=== PATIENT | male | born 1945 | race Caucasian/White ===

== ENCOUNTER 2017-07-15 11:49 | Emergency (ER) | payer MEDICARE, OTHER ==
[2017-07-15] MEDS ORDERED: Lidocaine 1% (PF) 30 ML VIAL ONE (12:09)
[2017-07-15] MEDS ORDERED: Bacitracin Zinc 1 Packet ONE (12:10)
[2017-07-15] MEDS ORDERED: Adacel (T-DAP) 0.5 ML VIAL ONE (12:47)
== END 2017-07-15 13:01 | disposition home or self-care (01) ==
LOC: ERS 11:49
DX: S61.011A Laceration without foreign body of right thumb without damage to nail, initial encounter (principal); W26.8XXA Contact with other sharp object(s), not elsewhere classified, initial encounter; Y99.0 Civilian activity done for income or pay
CPT/HCPCS: 12001; 90715; J2001

== ENCOUNTER 2018-02-02 15:19 | Emergency (ER) | payer MEDICARE, OTHER ==
--- NOTE | 2018-02-02 17:26 | RAD ---
TWO VIEWS CHEST: Comparison: None. History: Flu-like symptoms for five days with cough. FINDINGS: Two views of the chest show normal sized cardiomediastinal silhouette. There is no evidence of consol idation, mass, or pleural effusion. Degenerative changes are seen in the spine. IMPRESSION: No evidence of acute cardiopulmonary disease. POS: [facility]
== END 2018-02-02 17:24 | disposition home or self-care (01) ==
LOC: ERS 15:19
DX: J40 Bronchitis, not specified as acute or chronic (principal); Z79.899 Other long term (current) drug therapy
CPT/HCPCS: 71046

== ENCOUNTER 2018-09-03 07:28 | Outpatient (CLI) | payer MEDICARE, OTHER ==
--- NOTE | 2018-09-03 10:53 | MRI ---
MRI THORACIC SPINE NONCONTRAST: Date: 09/03/18 HISTORY: 72-year-old male with chronic thoracic spine pain becoming recently worse. FINDINGS: There is mildly exaggerated kyphosis, perhaps related to the minimal chronic loss of height of T6, T7 , T8, T9, T10, and T11 vertebrae, with minimal anterior wedging. There is no bone marrow edema at any level. There is a hemangioma of bone at the left side of T11. No other bone marrow signal abnormalit y. There is moderate left neural foraminal stenosis at T10-11. No high grade neural foraminal stenosi s at any other level. No high grade central bony spinal canal stenosis at any level. Prominent circum ferential epidural fat pad throughout the mid and lower thoracic spine levels result in mild and mode rate thecal sac stenosis. No extrinsic cord compression. No focal disc herniation that impinges on th e spinal cord. The thoracic spinal cord is normal in size and signal. No major pathology of the periv ertebral spaces. IMPRESSION: 1. Exaggerated kyphosis associated with minimal anterior wedge compression deformities of multiple l evels in the mid and lower thoracic spine, which are all chronic. 2. No acute compression fracture or cord impingement. 3. Left neural foraminal stenosis at T10-11. POS: [facility]
--- NOTE | 2018-09-03 10:53 | MRI ---
MRI LUMBAR SPINE NONCONTRAST: HISTORY: Low back pain. FINDINGS: The conus medullaris has a normal appearance. Vertebral body heights are maintained. Desiccation of all the intervertebral disks with discogenic endplate changes in the bone marrow. T12-L1, L1-L2: Osteophytosis. The central canal and neural foramina are patent. L2-L3: Minimal degenerative spondylolisthesis. Posterior disk bulge and circumferential degenerativ e changes with mild stenosis of the central canal and each neural foramina. L3-L4: Disk space narrowing. Posterior disk bulge and circumferential degenerative changes with mil d stenosis of the central canal and moderate stenosis of each neural foramen. L4-L5: Grade 1 degenerative spondylolisthesis. Disk space narrowing. Posterior disk bulge and circ umferential degenerative changes with severe stenosis of the central canal and each neural foramen. L5-S1: Mild posterior disk bulge with posterior annular fissure. The thecal sac is patent. The dis k bulge and degenerative changes result in moderate right and mild left foraminal stenosis. IMPRESSION: Degenerative changes throughout the lumbar spine. The central canal and foraminal stenosis is most s evere at the L4-L5 level. POS: [facility]
== END 2018-09-03 07:29 | disposition home or self-care (01) ==
LOC: BICMRI 07:28
PROVIDERS: ATTEND Family Medicine
DX: M54.5 Low back pain (principal); M48.061 Spinal stenosis, lumbar region without neurogenic claudication; M47.816 Spondylosis without myelopathy or radiculopathy, lumbar region; M47.817 Spondylosis without myelopathy or radiculopathy, lumbosacral region; M48.04 Spinal stenosis, thoracic region; M40.204 Unspecified kyphosis, thoracic region; M43.8X4 Other specified deforming dorsopathies, thoracic region
CPT/HCPCS: 72146; 72148

== ENCOUNTER 2018-12-27 04:22 | Emergency (ER) | payer MEDICARE, OTHER ==
[2018-12-27 04:49] LABS: #Basophils 0.1 thou/uL (0.0-0.2); #Eosinphils 0.2 thou/uL (0.0-0.7); #Lymphocytes 1.9 thou/uL (1.20-3.40); #Monocytes 0.6 thou/uL (0.11-0.59); #Neutrophils 1.5 thou/uL (1.40-6.50); %Basophils 1.5 % (0.0-1.0); %Eosinophils 5.8 % (0.0-10.0); %Lymphocytes 43.6 % (21.0-51.0); %Monocytes 13.8 % (0.0-10.0); %Neutrophils 35.3 % (42.0-75.0); Hemoglobin 14.2 g/dL (14.0-18.0); Mean Corpuscular HGB CONC 33.9 g/dL (32.0-36.0); Mean Corpuscular Hemoglobin 32.3 pg (27.0-31.0); Mean Corpuscular Volume 95.3 fL (78.0-98.0); Mean Platelet Volume 6.6 fL (7.4-10.4); Platelet Count 224 thou/uL (130-400); RBC Distribution Width 11.3 % (11.5-14.5); White Blood Cell (WBC) Count 4.3 thou/uL (4.8-10.8)
[2018-12-27] MEDS ORDERED: Ketorolac Tromethamine 30 MG/ML VIAL ONE (04:50)
[2018-12-27] MEDS ORDERED: Morphine 4 MG/ML VIAL ONE (04:50)
[2018-12-27 05:08] LABS: ALT (SGPT) 36 U/L (8-55); AST (SGOT) 44 U/L (5-34); Albumin 4.3 g/dL (3.4-4.8); Alkaline Phosphatase 122 U/L (40-150); Anion Gap 14 mmol/L (10-20); BUN (Urea Nitrogen) 22 mg/dL (8.4-25.7); Bilirubin, Total 0.3 mg/dL (0.2-1.2); Calc. Creatinine Clearance 0 mL/min (70-130); Calcium 9.7 mg/dL (7.8-10.44); Carbon Dioxide 25 mmol/L (23-31); Chloride 107 mmol/L (98-107); Estimated GFR-MDRD Greater than 90; Globulin 3.1 g/dL (2.4-3.5); Glucose 130 mg/dL (83-110); Potassium 3.9 mmol/L (3.5-5.1); Protein, Total 7.4 g/dL (5.8-8.1); Sodium 142 mmol/L (136-145)
[2018-12-27 06:08] LABS: Bilirubin Negative (Negative); Blood, Urine Large (Negative); Clarity CLEAR (Clear); Glucose, Urine (Dipstick) Negative (Negative); Leukocyte Negative (Negative); Nitrite Negative (Negative); Protein, Urine (Dipstick) Trace mg/dL (Neg-Trace); Specific Gravity, Urine 1.028 (1.002-1.036); Urobilinogen 0.2 mg/dL (0.2-1.0)
[2018-12-27 06:10] LABS: Bacteria/HPF None Seen HPF (None Seen); Hyaline Casts/LPF 0-3 HYALINE CAST LPF (0-3 Hyaline); RBC/HPF 0-3 HPF (0-3); Squamous Epithelial 0-3 HPF (0-3); WBC/HPF 0-3 HPF (0-3)
[2018-12-27 06:25] LABS: Crystals/HPF 1+ CA OXALATE HPF (Negative)
--- NOTE | 2018-12-27 07:13 | CT ---
CT OF ABDOMEN AND PELVIS NONCONTRAST RENAL CALCULUS PROTOCOL: Date: 12/27/18 COMPARISON: 06/17/17. INDICATION: History of urolithiasis, pain. FINDINGS: There is bilateral nephrolithiasis. There is mild right side hydroureteronephrosis which is resultant of a distal right ureteral calculus that measures approximately 2-3 mm. Mild prominence of the left lower pole collecting system may be related to parapelvic cyst formation. There is extensive colonic diverticulosis. Vascular disease is present. No significant abnormality of the lung bases. There are osseous degenerative changes. Evaluation is otherwise limited on the basis of noncontrast technique. IMPRESSION: 1. Mildly obstructing distal right ureteral calculus measuring 2-3 mm. 2. Bilateral nephrolithiasis. 3. Extensive colonic diverticulosis. POS: [facility]
== END 2018-12-27 06:45 | disposition home or self-care (01) ==
LOC: ERS 04:22
DX: N13.2 Hydronephrosis with renal and ureteral calculous obstruction (principal)
CPT/HCPCS: 74176; 80053; 81003; 81015; 85025; 87086; 96374; 96375; J1885; J2270

== ENCOUNTER 2019-07-21 13:33 | Emergency (ER) | payer MEDICARE, OTHER ==
[2019-07-21] MEDS ORDERED: Ketorolac Tromethamine 30 MG/ML VIAL ONE (13:45)
--- NOTE | 2019-07-21 14:15 | RAD ---
XR Elbow Lt 4 View STANDARD: 07/21/2019 1:45 PM CLINICAL INDICATION: Injury COMPARISON: None. FINDINGS: Fracture:No fracture. Arthropathy:Mild osteoarthritis. Incidental findings:None of significance. IMPRESSION: No acute osseous abnormality.
== END 2019-07-21 14:22 | disposition home or self-care (01) ==
LOC: SCSER 13:33
DX: S53.402A Unspecified sprain of left elbow, initial encounter (principal); F32.9 Major depressive disorder, single episode, unspecified; Z85.46 Personal history of malignant neoplasm of prostate; X50.9XXA Other and unspecified overexertion or strenuous movements or postures, initial encounter
CPT/HCPCS: 96372; J1885

== ENCOUNTER 2019-08-09 13:25 | Outpatient (CLI) | payer MEDICARE, OTHER ==
[2019-08-09 15:08] LABS: #Eosinphils 0.1 thou/uL (0.0-0.7); #Lymphocytes 1.4 thou/uL (1.20-3.40); #Monocytes 0.5 thou/uL (0.11-0.59); #Neutrophils 1.8 thou/uL (1.40-6.50); %Basophils 0.6 % (0.0-1.0); %Eosinophils 2.6 % (0.0-10.0); %Lymphocytes 36.5 % (21.0-51.0); %Monocytes 12.6 % (0.0-10.0); %Neutrophils 47.7 % (42.0-75.0); Hemoglobin 13.9 g/dL (14.0-18.0); Mean Corpuscular HGB CONC 33.6 g/dL (32.0-36.0); Mean Corpuscular Volume 95.4 fL (78.0-98.0); Mean Platelet Volume 6.9 fL (7.4-10.4); Platelet Count 208 thou/uL (130-400); RBC Distribution Width 11.4 % (11.5-14.5); Red Blood Cell (RBC) Count 4.33 mill/uL (4.70-6.10); White Blood Cell (WBC) Count 3.8 thou/uL (4.8-10.8)
[2019-08-09 15:27] LABS: Anion Gap 13 mmol/L (10-20); BUN (Urea Nitrogen) 21 mg/dL (8.4-25.7); Calc. Creatinine Clearance 0 mL/min (70-130); Calcium 9.5 mg/dL (7.8-10.44); Carbon Dioxide 27 mmol/L (23-31); Chloride 104 mmol/L (98-107); Estimated GFR-MDRD Greater than 90; Glucose 115 mg/dL (83-110); Potassium 3.7 mmol/L (3.5-5.1); Sodium 140 mmol/L (136-145)
== END 2019-08-09 13:26 | disposition home or self-care (01) ==
LOC: LABBT 13:25
PROVIDERS: ATTEND Orthopaedic Surgery
DX: Z01.818 Encounter for other preprocedural examination (principal); S46.212D Strain of muscle, fascia and tendon of other parts of biceps, left arm, subsequent encounter
CPT/HCPCS: 80048; 85025; 93005; 93010

== ENCOUNTER → 2019-08-11 | Day surgery (SDC) | payer MEDICARE, OTHER ==
[2019-08-09 13:32] VITALS: BMI 25.6
--- NOTE | 2019-08-10 18:20 | HP ---
HISTORY OF PRESENT ILLNESS: The patient is a 73-year-old right-hand dominant male, who injured his left elbow on 07/21/2019 when his arm was jerked on a dog leash. He has had persistent pain, deformity in his distal biceps area, and weakness of flexion. He had no previous problems. PAST MEDICAL HISTORY: The patient is otherwise in good health. He is normally quite active and is an avid bike rider. He has had previous surgery for prostate cancer and is currently on Lupron. He also takes a multivitamin, vitamin D, and Zoloft. 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 ALLERGIES: HE IS ALLERGIC TO PENICILLIN. FAMILY HISTORY: Otherwise, unremarkable. SOCIAL HISTORY: Otherwise, unremarkable. REVIEW OF SYSTEMS: Otherwise, unremarkable. PHYSICAL EXAMINATION: GENERAL: Reveals a healthy male. HEENT: Unremarkable. NECK: Supple. CHEST: Clear. HEART: Regular rate and rhythm. ABDOMEN: Soft, nontender. RECTAL: Deferred. GENITAL: Deferred. EXTREMITIES: Pertinent findings to left elbow reveals ecchymosis in the distal arm of the distal biceps and slightly palpable defect in the biceps tendon. He has full range of motion, but pain with extremes of motion and pain with flexion against resistance and supination against resistance. There is no instability. Neurovascular exam is intact. No palpable distal pulses. DIAGNOSTIC STUDIES: X-rays of the left elbow reveal minimal degenerative changes. MRI scan of the left elbow reveals a biceps tendon tear with several centimeters of retraction. IMPRESSION: Ruptured distal biceps tendon, left elbow. PLAN: Surgical repair. The nature of the surgery, length of recovery, and potential complications such as infection, loss of motion, incomplete relief, neurovascular injury, rupture with repair, and need for additional treatment, repeat surgery have been discussed in detail. Job ID: [id number]
[~2019-08-11] MED LIST: Bacitracin Zinc Ointment 30 gm TUBE ONE; Bupivacaine HCl 0.5%/Epinephrine 1:200,000/PF 30 ml Vial ONE; Clindamycin/D5W 900 mg/50 ml Premix Bag ONE; Dexamethasone 20 MG/5 ML VIAL ONE; Fentanyl 100 MCG/2 ML VIAL ONE; Midazolam HCl 2 mg/2 ml Vial ONE; Neomycin-Polymyxin 1 ML AMP ONE; Ondansetron PF 4 MG/2 ML Vial ONE; PROPOFOL 200 MG/20 ML VIAL ONE; ePHEDrine/0.9% NaCl/PF SYRINGE 50 mg/10 ml ONE
--- NOTE | 2019-08-11 16:46 | OP ---
DATE OF PROCEDURE: 08/11/2019 PREOPERATIVE DIAGNOSIS: Ruptured left distal biceps tendon. POSTOPERATIVE DIAGNOSIS: Ruptured left distal biceps tendon. PROCEDURE PERFORMED: Open primary repair of left distal biceps. RADIAL DRILL OPERATOR: Deo Clarke PA-C. ANESTHESIA: General via LMA, augmented with a single shot interscalene block. COMPONENTS USED: Arthrex distal biceps repair kit to include 8-mm interference screw and a dog bone far cortex locking device with a suture lock stitch. FINDINGS: Ruptured retracted biceps tendon of the antecubital fossa with apparent rupture at the periosteum. TOURNIQUET TIME: 45 minutes at 250 mmHg. ESTIMATED BLOOD LOSS: Negligible. FLUIDS: 500 mL of crystalloid. OUTPUT: Not measured. DRAINS: None. SPECIMENS: None. COMPLICATIONS: None. COUNTS: Correct. INDICATION FOR SURGERY: Blake is a 73-year-old male, who ruptured his left biceps tendon when he was walking his dog approximately 3 weeks ago. MRI demonstrated a retracted left biceps tendon. Therefore, he elected to proceed with operative management of this problem as definitive treatment. PROCEDURE IN DETAIL: After informed consent was obtained in the preoperative holding area, the patient received preoperative antibiotics. He was taken to the operative suite, where general anesthesia was induced. LMA was placed and secured. Once adequate anesthesia was obtained, a well-padded tourniquet was placed over the left proximal thigh and knee. He was then prepped and draped in usual sterile fashion. Prior to exsanguination, a time-out was called and all members of the surgical team attended. The extremity was then exsanguinated and tourniquet was raised to 250 mmHg . A lazy-S incision was made over the antecubital fossa after palpation of the biceps was noted clinically. The patient's habit was tall and thin. Subcutaneous layer was divided with sterile scissors and then blunt dissection was carried down to identify the tendon itself. The sheath was removed and excised. The tendon was then identified and stitched with suture lock, getting good proximal fixation. We then blunt dissected down to the radius, placed the patient in supination and mild flexion, revealed a 4.0 pin through and through both cortices using a ghcdle-ja-czildw technique in the proximal radius. The 8-mm screw was then used for the far cortex reaming and we then pulled the suture lock through and through the dog bone, placed in the far cortex and cinched up the bisection, establishing a good inferior cortical fixation of the distal biceps, which pulled down into the well. 8-mm bioabsorbable screws used as an interference backup screw. The FiberWire was tied over the top after stitching through the distal tendon for fixation. The wound was copiously irrigated with normal saline. Primary closure was accomplished using 3-0 subcuticular stitches and the skin was reapproximated with stainless steel patricia. Sterile dressing was applied and the patient was placed in a posterior sugar-tong plaster splint. The splint was allowed to cure. He was placed in a long-arm sling. The LMA was removed. He was taken to the recovery room in stable condition. Job ID: [id number]
== END ==
LOC: SDC 10:54
PROVIDERS: ATTEND Orthopaedic Surgery
PROC: 0LM40ZZ Reattachment of Left Upper Arm Tendon, Open Approach (ICD-10-PCS; principal; 2019-08-11)
PROC: 3E0T3BZ Introduction of Anesthetic Agent into Peripheral Nerves and Plexi, Percutaneous Approach (ICD-10-PCS; 2019-08-11)
DX: S46.212A Strain of muscle, fascia and tendon of other parts of biceps, left arm, initial encounter (principal); G89.18 Other acute postprocedural pain; Z85.46 Personal history of malignant neoplasm of prostate; Z79.899 Other long term (current) drug therapy; Z88.0 Allergy status to penicillin; X58.XXXA Exposure to other specified factors, initial encounter
CPT/HCPCS: 24342; 64413; C1713; J0131; J2250; J3010; J3490